=== PATIENT | male | born 1990 | race Caucasian/White ===

== ENCOUNTER → 2020-05-25 14:11 | Outpatient (CLI) | payer BC, SELFPAY ==
[2020-05-25 14:34] LABS: Basophils % 0.4 % (0.1-2.0); Eosinophils # 0.3 K/mm3 (0.0-0.4); Eosinophils % 3.8 % (0.1-12.0); Hematocrit 45.4 % (42.0-52.0); Hemoglobin 15.3 g/dL (14.1-18.0); Lymphocytes # 1.9 K/mm3 (0.7-4.5); Lymphocytes % 25.3 % (10-50); Mean Corpuscular HGB Conc 33.7 g/dL (31.8-35.4); Mean Corpuscular Hemoglobin 29.4 pg (27.0-31.2); Mean Corpuscular Volume 87.3 fl (80-94); Mean Platelet Volume 8.6 fl (7.4-10.4); Monocytes # 0.3 K/mm3 (0.1-1.0); Monocytes % 4.1 % (1.7-9.3); Neutrophils % 66.4 % (37.0-80.0); Platelet Count 195 K/mm3 (142-424); Red Cell Distribution Width 13.5 % (11.5-17.5); White Blood Count 7.6 K/mm3 (4.8-10.8)
[2020-05-25 15:26] LABS: Anion Gap 11.4 mEq/L (5-15); Blood Urea Nitrogen 18 mg/dl (9-20); Calcium 9.7 mg/dl (8.4-10.2); Carbon Dioxide 27 mmol/L (22.0-30.0); Chloride 104 mmol/L (98-107); Estimated Glomerular Filt Rate 100 ml/min (>60); GFR (African American) 122 ML/MIN (>60); Glucose 69 mg/dl (74-100); Potassium 4.4 mmoL/L (3.5-5.1); Sodium 138 mmol/L (136-145)
[2020-05-25 15:40] LABS: Free T4 (Free Thyroxine) 1.08 ng/dl (0.78-2.19)
[2020-05-25 15:54] LABS: Thyroid Stimulating Hormone 1.22 uIU/mL (0.465-4.68)
== END ==
PROVIDERS: Visit Provider Urology
DX: R01.1 Cardiac murmur, unspecified (principal); R06.00 Dyspnea, unspecified; R07.89 Other chest pain; R94.31 Abnormal electrocardiogram [ECG] [EKG]
CPT/HCPCS: 36415; 80048; 84439; 84443; 85025

== ENCOUNTER → 2020-05-27 11:41 | Outpatient (CLI) | payer BC, SELFPAY ==
--- NOTE | 2020-05-27 11:41 | CT_ITS ---
PROCEDURE: CT ANGIO CHEST CLINCIAL INDICATION: dyspnea Soa Worst since Sunday Chest congestion Pt feels like he is unable to get a full breath COMPARISON: No exams were available for comparison TECHNIQUE: IV Contrast: 70ML Isovue 370 Axial images obtained with sagittal and coronal reformats. All CT scans at the facility use one or more dose reduction, viz: automated exposure control, ma/kV adjustment per patient size (including targeted exams where dose is matched to indication, i.e. head), or iterative reconstruction technique. FINDINGS: HEART AND MEDIASTINAL STRUCTURES: There is mild fusiform dilatation of the ascending aorta measuring 4.3 cm AP and 4.1 cm transverse. No evidence of aortic dissection. The aortic arch and descending thoracic aorta are normal in caliber. No evidence of pulmonary embolus. The great vessels have an unremarkable appearance. No mediastinal or hilar mass. There is some heterogeneous soft tissue density in the anterior mediastinum which may be related to residual thymic tissue. LUNGS AND PLEURAL SPACES: Unremarkable. BONY STRUCTURES: No acute bony abnormalities apparent. UPPER ABDOMEN: Unremarkable. ADDITIONAL FINDINGS: Minimal gynecomastia IMPRESSION: Mild fusiform aneurysmal dilatation of the ascending aorta at 4.3 x 4.1 cm. No evidence of dissection or other significant anomaly. No evidence of pulmonary embolus Dictated by: Bret Olivera MD 05/28/2020 11:05 Bert Oilvera MD in [facility] 05/28/2020 11:05
== END ==
PROVIDERS: PCP Emergency Medicine; Visit Provider Urology
DX: R07.89 Other chest pain (principal); R06.00 Dyspnea, unspecified; R01.1 Cardiac murmur, unspecified; R94.31 Abnormal electrocardiogram [ECG] [EKG]; R06.02 Shortness of breath
CPT/HCPCS: 71275; 93306; Q9967

== ENCOUNTER → 2020-06-01 06:37 | Outpatient (CLI) | payer BC, SELFPAY ==
--- NOTE | 2020-06-01 06:37 | CT_ITS ---
PROCEDURE: CT ANGIO CORONARY ARTERY CLINICAL HISTORY: abnormal echo/abnormal chest ct Thoracic aortic aneurysm, chest pain COMPARISON: CT CT ANGIO CHEST from 05/27/2020 TECHNIQUE: Oral Contrast: None IV Contrast: 200 mL Isovue [address] coronary angiogram performed by standard technique. No medication needed for bradycardia. Two runs were performed. FINDINGS: There is mild dilatation of the ascending thoracic aorta as previously mentioned. There appears to be a bicuspid aortic valve. Please correlate with echocardiography. The LAD and the circumflex have separate origins from the left aortic cusp. No significant stenotic lesions are evident of the LAD or circumflex. There is left-sided dominance with the circumflex giving rise to the PDA and posterior lateral branch to the left ventricle. The LAD also supplies the anterior inferior aspect of the inferior wall. The RCA is a small vessel originating from the right coronary cusp with a small acute marginal branch. The PDA arises from the circumflex. No stenotic lesions are evident. No evidence of myocardial bridging. No coronary artery aneurysms. There does appear to be mild cardiomegaly with multi chamber enlargement. Please see echo report for further evaluation of the cardiac chambers. IMPRESSION: 1. No stenotic lesions or malignant courses of the coronary arteries. 2. 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 Suspected bicuspid aortic valve. Please correlate with echocardiography. 4. Small right coronary artery. Inferior wall is supplied by the PDA which arises from the circumflex and the LAD. 5. Fusiform dilatation of the ascending thoracic aorta. The thoracic aorta is incompletely imaged on this exam. Dictated by: Bret Olivera MD 06/02/2020 10:58 Bret Olivera MD in [facility] 06/02/2020 10:58
[2020-06-01 06:54] VITALS: BMI 35.2
== END ==
PROVIDERS: PCP Emergency Medicine; Visit Provider Urology
DX: R06.00 Dyspnea, unspecified (principal); R07.9 Chest pain, unspecified; R07.89 Other chest pain; I71.2 Thoracic aortic aneurysm, without rupture; R01.1 Cardiac murmur, unspecified; R93.1 Abnormal findings on diagnostic imaging of heart and coronary circulation; R93.89 Abnormal findings on diagnostic imaging of other specified body structures; R94.31 Abnormal electrocardiogram [ECG] [EKG]
CPT/HCPCS: 75574; Q9967

== ENCOUNTER → 2020-06-09 15:37 | Outpatient (CLI) | payer BC, SELFPAY ==
[2020-06-09 16:23] LABS: Chloride 103 mmol/L (98-107); Potassium 4.8 mmoL/L (3.5-5.1); Sodium 138 mmol/L (136-145)
[2020-06-09 16:26] LABS: Anion Gap 10.8 mEq/L (5-15); Blood Urea Nitrogen 16 mg/dl (9-20); Carbon Dioxide 29 mmol/L (22.0-30.0); Estimated Glomerular Filt Rate 100 ml/min (>60); GFR (African American) 122 ML/MIN (>60)
[2020-06-09 16:27] LABS: Glucose 90 mg/dl (74-100)
[2020-06-09 16:36] LABS: NT Pro Brain Natriuretic Pep. 42.5 pg/mL (0-125)
== END ==
PROVIDERS: Visit Provider Internal Medicine Cardiovascular Disease
DX: R06.00 Dyspnea, unspecified (principal); R07.89 Other chest pain; R01.1 Cardiac murmur, unspecified; I71.2 Thoracic aortic aneurysm, without rupture; Q23.1 Congenital insufficiency of aortic valve; R94.31 Abnormal electrocardiogram [ECG] [EKG]
CPT/HCPCS: 36415; 80048; 83880

== ENCOUNTER → 2020-06-23 19:09 | Outpatient (CLI) | payer BC, SELFPAY | PROVIDERS: PCP Emergency Medicine; Visit Provider Internal Medicine | DX: R07.89 Other chest pain (principal); R06.00 Dyspnea, unspecified; R94.31 Abnormal electrocardiogram [ECG] [EKG]; R01.1 Cardiac murmur, unspecified; R40.0 Somnolence; G47.30 Sleep apnea, unspecified | CPT/HCPCS: G0399 ==

== ENCOUNTER → 2020-11-11 14:22 | Outpatient (CLI) | payer BC, SELFPAY ==
--- NOTE | 2020-11-11 14:23 | CT_ITS ---
PROCEDURE: CT ANGIO CHEST CLINCIAL INDICATION: r/o thoracic aneurysm COMPARISON: CT CT ANGIO CHEST from 05/27/2020 TECHNIQUE: IV Contrast: 70ML Isovue 370 Axial images obtained with sagittal and coronal reformats. All CT scans at the facility use one or more dose reduction, viz: automated exposure control, ma/kV adjustment per patient size (including targeted exams where dose is matched to indication, i.e. head), or iterative reconstruction technique. FINDINGS: HEART AND MEDIASTINAL STRUCTURES: No mediastinal or hilar mass or adenopathy. There is mild fusiform dilatation of the ascending aorta at 4.3 x 4.2 cm not significantly changed. No evidence of aortic dissection. No evidence of pulmonary embolus.. Possible bicuspid aortic valve. Please correlate with echocardiography. LUNGS AND PLEURAL SPACES: Unremarkable. BONY STRUCTURES: Minimal degenerative changes of the thoracic spine with decrease in the disc spaces and endplate irregularity in the midthoracic spine. UPPER ABDOMEN: Unremarkable. ADDITIONAL FINDINGS: No other significant abnormalities. IMPRESSION: No change in the mild fusiform dilatation of the ascending thoracic aorta at 4.3 x 4.2 cm. No evidence of dissection or other acute anomaly. Dictated by: Bret Olivera MD 11/12/2020 08:09 Bret Olivera MD in [facility] 11/12/2020 08:09
== END ==
PROVIDERS: PCP Emergency Medicine; Visit Provider Family Medicine
DX: R06.00 Dyspnea, unspecified (principal)
CPT/HCPCS: 71275; Q9967

== ENCOUNTER 2020-12-03 19:29 | Emergency (ER) | payer BC, SELFPAY ==
--- NOTE | 2020-12-03 19:24 | ECG_ITS ---
APPROVED REPORT Exam: Resting ECG HR:86 bpm ECG Measurements Heart Rate 86 AXES NV 148 P 70 QRSd 88 QRS 47 QT 366 T 42 QTc 437 Conclusion Normal sinus rhythm Normal ECG Electronically signed by : Issac Kenny MD 12/04/2020 08:56:23
[2020-12-03 19:30] VITALS: BP 167/91; PULSE 92; RESP 16; TEMP 36.6; O2SAT 99; BMI 36.3
[2020-12-03 19:37] VITALS: PULSE 92
--- NOTE | 2020-12-03 19:40 | CT_ITS ---
PROCEDURE INFORMATION: Exam: CTA Chest With Contrast Exam date and time: 12/03/20 07:40 PM Age: 30 years old Clinical indication: Angina pectoris; Patient HX: Known ascending aortic aneurysm measuring 4.[address] scan. PT stated he was having chest pain on the left side going into shoulder, nonsmoker, no SX TECHNIQUE: Imaging protocol: Computed tomographic angiography of the chest with contrast. 3D rendering (Not supervised by radiologist): MIP and/or 3D reconstructed images were created by the technologist. Radiation optimization: All CT scans at this facility use at least one of these dose optimization techniques: automated exposure control; mA and/or kV adjustment per patient size (includes targeted exams where dose is matched to clinical indication); or iterative reconstruction. Contrast material: ISOVUE 370; Contrast volume: 100 ml; Contrast route: INTRAVENOUS (IV); COMPARISON: CT ANGIO CHEST 11/11/20 02:42 PM FINDINGS: Pulmonary arteries: Normal. No pulmonary emboli. Aorta: Unremarkable. No aortic aneurysm. No aortic dissection. Lungs: Unremarkable. No consolidation. No masses. Pleural spaces: Unremarkable. No pneumothorax. No pleural effusion. Heart: Unremarkable. No cardiomegaly. No pericardial effusion. Lymph nodes: Unremarkable. No enlarged lymph nodes. Bones/joints: Unremarkable. No acute fracture. Soft tissues: Unremarkable. IMPRESSION: No acute findings.
--- NOTE | 2020-12-03 19:41 | [facility].EDCP ---
ED Disposition Condition on Discharge: Good - Critical Care Critical Care Time: No <AlexsesarSelwyn - Last Filed: 12/03/20 19:41> <Derrick Sanchez - Last Filed: 12/03/20 20:43> Clinical Impression: Dyspepsia, Nonspecific chest pain Disposition: Home, Self-Care Instructions: DI for Atypical Chest Pain Additional Instructions: see card for follow up Referrals: Jarret De La Rosa MD [Staff Physician] - Attestation: On 12/03/20, the high probability of a clinically significant, sudden or life threatening deterioration of the following system(s) required my full and direct attention, intervention and personal management. The time I documented below is in addition to time spent performing reported procedures but includes the following listed in this critical care notation. Medical Decision Making - Medical Records Medical records reviewed: Yes: I reviewed the patient's medical records. - Myron Inquiry Pt receiving controlled substance: No - ECG Data Tracing #1 I reviewed this ECG and interpreted as documented below: ECG initial impression date: 12/03/20 ECG initial impression time: 19:24 ECG normal with no acute: arrhythmias, ischemia, conduction abnormalities, chamber hypertrophy Normal Sinus Rhythm: Yes - MALGORZATA Score for Non-Stemi Age of Patient: <30 years old Heart Rate: 90-109 bpm Systolic Blood Pressure: 160-199 mmHg Serum Creatinine: <0.40 mg/dl CHF Killip Class: I-No CHF Other Risk Factors: None Non-Stemi Risk Score: 26 Risk Stratification: 1-108 = Low Risk <AlexsesarSelwyn - Last Filed: 12/03/20 19:41> - Lab Data Lab results reviewed: Yes: I reviewed the patient's lab results. Result diagrams: 12/03/20 19:30 12/03/20 19:30 - CT Data CT Scan: Chest Time Received: 20:[address] Reviewed: Yes: I have viewed the radiologist's interpretation Preliminary Findings: Normal/NAD <Derrick Sanchez - Last Filed: 12/03/20 20:43> Vital Signs: 12/03/20 19:30 12/03/20 19:37 Temperature 98 F Temperature Source Oral Pulse Rate 92 H Pulse Rate [Apical] 92 H Respiratory Rate 16 Blood Pressure [Right Arm] 167/91 H Blood Pressure Mean [Right Arm] 116 Blood Pressure Source [Right Arm] Automatic Cuff Blood Pressure Position [Right Arm] Sitting 02 Sat by Pulse Oximetry 99 Oxygen Delivery Method Room Air - Lab Data Lab Results 12/03/20 19:30: WBC 6.2, RBC 4.95, Hgb 14.9, Hct 43.2, MCV 87.4, MCH 30.1, MCHC 34.4, RDW 13.2, Plt Count 200, MPV 9.3, Neut % (Auto) 49.7, Lymph % (Auto) 41.9, [place] % (Auto) 4.7, Eos % (Auto) 2.9, Baso % (Auto) 0.8, Neut # (Auto) 3.1, Lymph # (Auto) 2.6, [place] # (Auto) 0.3, Eos # (Auto) 0.2, Baso # (Auto) 0.1 12/03/20 19:30: Sodium 141, Potassium 4.0, Chloride 106, Carbon Dioxide 26, Anion Gap 13.0, BUN 12, Creatinine 0.70, Estimated Creat Clear 275, Estimated GFR 133, Est GFR ( Amer) 161, Glucose 96, Calcium 9.1, Total Bilirubin 0.4, AST 57, ALT 98 H, Alkaline Phosphatase 75, Troponin I < 0.01, NT-Pro-B Natriuret Pep 34.9, Total Protein 7.5, Albumin 4.3, Globulin 3.2, Albumin/Globulin Ratio 1.3, Lipase 83 Orders (Tests/Meds): ED MEDICATIONS Generic Name Dose Route Start Last Admin Trade Name Freq PRN Reason Stop Dose Admin Sodium Chloride 8 ml 12/03/20 19:40 Sodium Chloride 0.9% 10ml Vial IV 01/02/21 19:39 NEEDED PRN dilute pepcid Discontinued Medications Generic Name Dose Route Start Last Admin Trade Name Freq PRN Reason Stop Dose Admin Famotidine 20 mg 12/03/20 19:40 12/03/20 20:07 Famotidine 20mg/2ml Vial IV 12/03/20 19:41 20 mg ONCE ONE Administration Iopamidol 100 ml 12/03/20 19:58 12/03/20 19:59 Iopamidol-370 (76%);100ml Bottle IV 12/03/20 19:59 100 ml ONCE ONE Administration Sodium Chloride 50 ml 12/03/20 19:58 12/03/20 19:59 0.9 % Sodium Chloride 50 Ml Vial IV 12/03/20 19:59 50 ml ONCE ONE Administration Sodium Chloride 10 ml 12/03/20 19:58 12/03/20 19:59 Sodi
[2020-12-03 20:01] LABS: Basophils # 0.1 K/mm3 (0-0.2); Basophils % 0.8 % (0.1-2.0); Eosinophils # 0.2 K/mm3 (0.0-0.4); Eosinophils % 2.9 % (0.1-12.0); Hematocrit 43.2 % (42.0-52.0); Hemoglobin 14.9 g/dL (14.1-18.0); Lymphocytes # 2.6 K/mm3 (0.7-4.5); Lymphocytes % 41.9 % (10-50); Mean Corpuscular HGB Conc 34.4 g/dL (31.8-35.4); Mean Corpuscular Hemoglobin 30.1 pg (27.0-31.2); Mean Corpuscular Volume 87.4 fl (80-94); Mean Platelet Volume 9.3 fl (7.4-10.4); Monocytes # 0.3 K/mm3 (0.1-1.0); Monocytes % 4.7 % (1.7-9.3); Neutrophils # 3.1 K/mm3 (1.8-7.8); Neutrophils % 49.7 % (37.0-80.0); Platelet Count 200 K/mm3 (142-424); Red Blood Count 4.95 M/mm3 (4.60-6.20); Red Cell Distribution Width 13.2 % (11.5-17.5); White Blood Count 6.2 K/mm3 (4.8-10.8)
[2020-12-03 20:03] LABS: Chloride 106 mmol/L (98-107); Sodium 141 mmol/L (136-145)
[2020-12-03 20:05] LABS: Alanine Aminotransferase 98 U/L (12-78); Alkaline Phosphatase 75 U/L (38-126); Aspartate Amino Transferase 57 U/L (17-59); Bilirubin,Total 0.4 mg/dl (0.2-1.3); Blood Urea Nitrogen 12 mg/dl (9-20); Creatinine Clearance Estimated 275 mL/min (50-200); Estimated Glomerular Filt Rate 133 ml/min (>60); GFR (African American) 161 ML/MIN (>60)
[2020-12-03 20:06] LABS: Albumin Level 4.3 g/dl (3.5-5.0); Albumin/Globulin Ratio 1.3 (1.1-1.8); Calcium 9.1 mg/dl (8.4-10.2); Carbon Dioxide 26 mmol/L (22.0-30.0); Globulin 3.2 g/dL (1.3-3.2); Glucose 96 mg/dl (74-100); Lipase 83 U/L (23-300); Total Protein,Serum 7.5 g/dl (6.3-8.2)
[2020-12-03 20:15] LABS: NT Pro Brain Natriuretic Pep. 34.9 pg/mL (0-125)
[2020-12-03 20:19] LABS: Troponin I < 0.01 ng/ml (0.00-0.034)
[2020-12-03 20:48] VITALS: BP 135/75; PULSE 87; RESP 16; TEMP 36.7; O2SAT 98
== END 2020-12-03 20:48 | disposition home or self-care (01) ==
PROVIDERS: Emergency Provider Emergency Medicine; PCP Emergency Medicine
DX: R07.89 Other chest pain (principal); K21.9 Gastro-esophageal reflux disease without esophagitis; R01.1 Cardiac murmur, unspecified
CPT/HCPCS: 71275; 80053; 83690; 83880; 84484; 85025; 93005; 96374; 99283; Q9967

== ENCOUNTER 2024-10-14 14:56 | Outpatient (CLI) | payer BC, SELFPAY ==
--- OUTSIDE RECORDS SUMMARY | 2024-10-14 14:59 | XMS_ITS | Clinical Summary ---
Author Organization [facility] Address [address] [place] [id number] Phone [email or web address] Care Team Providers Care Product Development Manager Name Role Phone Unavailable Primary Care Provider Unavailabl e Allergies Active Allergy Reactions Criticality Noted Date Comments Benzoyl Peroxide 11/30/2020 Medications pantoprazole (PROTONIX) 40 MG EC tablet Take 40 mg by mouth 1 (one) time each day. 11/02/2020 Active losartan (COZAAR) 50 MG tablet Take 50 mg by mouth 1 (one) time each day. 10/27/2020 Active Active Problems No known active problems Social History Tobacco Use Types Packs/Day Years Used Date Smoking Tobacco: Never Smokeless Tobacco: Current Snuff Intimate Partner Violence Answer Date R ecorded Insults You Not on file 06/05/2020 Threatens You Not on file 06/05/2020 Screams at You Not on file 06/05/2020 Physically Hurt Not on file 06/05/2020 Intimate Partner Violence Score Not on file 06/05/2020 Depression Answer Date Recorded PHQ Total Score 0 12/09/2022 Stress Answer Date Recorded Stress in your Life Not on file 12/26/2023 Dealing with Stress 3 12/26/2023 Sex and Gender Information Value Date Recorded Sex Assigned at Not on file 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 Gender Identity Not on file Sexual Orientation Not on file Last Filed Vital Signs Vital Sign Reading Time Taken Comments Blood Pressure 132/76 05/30/2023 10:21 PM EDT Pulse 90 05/30/2023 10:21 PM EDT Temperature 36.7 C (98 F) 05/30/2023 10:21 PM EDT Respiratory Rate 16 05/30/2023 10:21 PM EDT Oxygen Saturation 98% 05/30/2023 10:21 PM EDT Inhaled Oxygen Concentration - - Weight 134 kg (295 lb) 05/30/2023 10:21 PM EDT Height 185.4 cm (6' 1 ) 05/30/2023 10:21 PM EDT Body Mass Index 38.92 05/30/2023 10:21 PM EDT Plan of Treatment Health Maintenance Due Date Last Done Comments Dental Cleaning/Exam 1991 HIV Screening 1991 Hepatitis C Screening 1991 HPV Immunization (1 - Male 3-dose series) 06/18/2006 Annual Preventive Exam 06/18/2009 Hep B Infection Screening - Triple Screen 06/18/2009 Covid-19 Immunization ( season) 2023 Influenza Immunization (#1) 2024 Tetanus Diphtheria and Pertussis Immunization (6 - Td or Tdap) 12/09/2032 12/09/2022, 02/11/1996, 12/29/1993, Additional history exists HIB Immunization Completed 02/11/1996, 11/1993, 04/28/1992, Additional history exists Polio Immunization Completed 02/11/1996, 1 02/28/1993, 04/28/1992, Additional history exists Hepatitis B Immunization Completed 005, 05/12/2003, 08/27/2002 Hepatitis A Immunization Aged Out No longer eligible based on patient's age to complete this topic Pneumococcal: Ped (0 to 5 Yrs) and At-Risk Member (6 to 64 Yrs) Aged Out No longer eligible based on patient's age to complete this topic Varicella Immunization Aged Out No lo nger eligible based on patient's age to complete this topic Insurance OPT OUT NO COPAY NB
--- OUTSIDE RECORDS SUMMARY | 2024-10-14 14:59 | XMS_ITS | Clinical Summary ---
Author Organization [facility] Address [address] [place] [address] Care Team Providers Care Central Office Trouble Shooter Name Role Phone Derrick Sanchez MD Primary Care Provider + [phone] Allergies Active Allergy Reactions Criticality Noted Date Comments Benzoyl Peroxide Unknown - Patient st ates they do not know rxn details Low 11/30/2020 Medications No known medications Active Problems Problem Noted Date Diagnosed Date Finger pain, left 01/24/2023 Immunizations Immunization Administration Dates Next Due Tdap 12/09/2022 Social History Tobacco Use Types Packs/Day Years Used Date Smoking Tobacco: Never Smokeless Tobacco: Former Tobacco Cessation:Counseling Given: Not Answered Sex and Gender Information Value Date Recorded Sex Assigned at Not on file Legal Sex Male 8:00 PM EDT Gender Identity Not on file Sexual Orientation Not on file Last Filed Vital Signs Vital Sign Reading Time Taken Comments Blood Pressure 108/71 01/24/2023 3:37 PM EST Pulse 93 01/24/2023 3:37 PM EST Temperature 36.7 C (98 F) 12/13/2022 9:14 AM EDT Respiratory Rate 20 12/09/2022 7:58 AM EDT Oxygen Saturation 94% 01/24/2023 3:37 PM EST Inhaled Oxygen Concentration - - Weight 134 kg (295 lb) 01/24/2023 3:37 PM EST Height 185.4 cm (6' 1 ) 01/24/2023 3:37 PM EST Body Mass Index 38.92 01/24/2023 3:37 PM EST Plan of Treatment Health Maintenance Due Date Last Done Comments [facility]-Depression Screening 1991 [facility]-HIV Screening 1991 [facility]-Hepatitis C Screening 1991 [facility]-/Child/Adol SDOH Screenings 1991 [facility]-Varicella Vaccines (1 of 2 - 13+ 2-dose series) 06/18/2004 [facility]- SDOH Screenings 06/18/2009 [facility]-Adult SDOH Screenings 06/18/2009 HPV Vaccines (1 - 3-dose SCDM series) 06/18/2018 [id number] Vaccine (1 - 2023- season) 2023 [facility]-Influenza Vaccine (#1) 2024 [facility]-DTaP,Tdap,and Td Vaccines (6 - Td or Tdap) 12/09/2032 12/09/2022, 02/08/2002, 02/11/1996, Additional history exists [facility]-Zoster Vaccines (1 of 2) 06/18/2041 [facility]-HIB Vaccines Completed 02/11/1996, 11/1993, 04/28/1992, Additional history exists [facility]-IPV Vaccines Completed 02/11/1996, 11/1993, 04/28/1992, Additional history exists [facility]-Hepatitis B Vaccines Completed 005, 05/12/2003, 08/27/2002 [facility]-Obesity Intervention Completed 023, 01/24/2023, 01/03/2023, Additional history exists [facility]-Hepatitis A Vaccines Aged Out No longer eligible based on patient's age to complete this topic [facility]-Pneumococcal Vaccine: Pediatrics (0 to 5 Years) and At-Risk Patients (6 to 49 Years) Aged Out No longer eligible based on patient's age to complete this topic [facility]-Rotavirus Vaccines Aged Out No lo nger eligible based on patient's age to complete this topic Insurance [facility] Care Teams Central Office Trouble Shooter Relationship Specialty Start Date End Date Derrick Sanchez MD [address] [place] [address] [place] [address] PCP - General 07/02/20
[2024-10-14 15:24] LABS: Hematocrit 42.8 % (42.0-52.0); Hemoglobin 14.8 g/dL (14.1-18.0); Immature Granulocytes % 0.3 %; Mean Corpuscular HGB Conc 34.6 g/dL (31.8-35.4); Mean Corpuscular Hemoglobin 30.0 pg (27.0-31.2); Mean Corpuscular Volume 86.6 fl (80-94); Nucleated Red Blood Cells % 0 %; Platelet Count 220 K/mm3 (142-424); Red Blood Count 4.94 M/mm3 (4.60-6.20); Red Cell Distribution Width-SD 38.5 fL; White Blood Count 7.6 K/mm3 (4.8-10.8)
[2024-10-14 16:05] LABS: Albumin Level 4.5 g/dl (3.5-5.0); Chloride 107 mmol/L (98-107); Sodium 138 mmol/L (136-145)
[2024-10-14 16:06] LABS: Potassium 4.2 mmoL/L (3.5-5.1)
[2024-10-14 16:08] LABS: Alanine Aminotransferase 151 U/L (12-78); Anion Gap 10.2 mEq/L (5-15); Aspartate Amino Transferase 59 U/L (17-59); Bilirubin,Unconjugated 0.3 mg/dL (0.0-1.1); Blood Urea Nitrogen 25 mg/dl (9-20); Carbon Dioxide 25 mmol/L (22.0-30.0); Cholesterol 187 mg/dl (140-200); Creatinine,Serum 0.90 mg/dl (0.66-1.25); Estimated Glomerular Filt Rate 97 ml/min (>60); GFR (African American) 118 ML/MIN (>60); Total Protein,Serum 7.0 g/dl (6.3-8.2); Triglycerides 120 mg/dl (30-150)
[2024-10-14 16:09] LABS: Alkaline Phosphatase 78 U/L (38-126); Bilirubin,Direct 0.1 mg/dl (0.0-0.4); Bilirubin,Indirect 0.3 mg/dL (0.0-0.9); Bilirubin,Total 0.4 mg/dl (0.2-1.3); Calcium 9.6 mg/dl (8.4-10.2); Glucose 88 mg/dl (74-100); HDL Cholesterol 41 mg/dl (40-60); Magnesium 2.0 mg/dl (1.6-2.3)
[2024-10-14 16:34] LABS: Free T4 (Free Thyroxine) 1.20 ng/dl (0.78-2.19)
[2024-10-14 16:39] LABS: Thyroid Stimulating Hormone 1.23 uIU/mL (0.465-4.68)
== END 2024-10-14 23:59 | disposition home or self-care (01) ==
LOC: LAB 14:57
PROVIDERS: Visit Provider Physician Assistant
DX: I71.21 Aneurysm of the ascending aorta, without rupture (principal); Q23.81 Bicuspid aortic valve; K21.9 Gastro-esophageal reflux disease without esophagitis; R01.1 Cardiac murmur, unspecified
CPT/HCPCS: 36415; 80048; 80061; 80076; 83735; 84439; 84443; 85025

== ENCOUNTER 2024-10-27 07:42 | Outpatient (CLI) | payer BC, SELFPAY ==
--- OUTSIDE RECORDS SUMMARY | 2024-10-27 07:45 | XMS_ITS | Clinical Summary ---
Author Organization [facility] Address [address] [place] [address] Care Team Providers Care Pharmacy Order Entry Technician Name Role Phone Derrick Sanchez MD Primary Care Provider + [phone] Allergies Active Allergy Reactions Criticality Noted Date [...] [facility]-HIV Screening 1991 [facility]-Hepatitis C Screening 1991 [facility]-Infant/Child/Adol SDOH Screenings 1991 [facility]-Varicella Vaccines (1 of 2 - 13+ 2-dose series) 06/18/2004 [facility]- SDOH Screenings 06/18/2009 [facility]-Adult SDOH Screenings 06/18/2009 HPV Vaccines (1 - 3-dose SCDM series) 06/18/2018 [id number] Vaccine (1 - 2023- season) 2023 [facility]-Influenza [...] age to complete this topic Insurance [facility] Care Teams Pharmacy Order Entry Technician Relationship Specialty Start Date End Date Derrick Sanchez MD [address] [place] [address] [place] [address] PCP - General 07/02/20
--- NOTE | 2024-10-27 08:00 | CA_ITS ---
APPROVED REPORT EXAM: Comprehensive 2D, Doppler, and color-flow Echocardiogram Tobacco Sieve Operator: Theresa Gandhi CRT Ht: 6 ft 1 in Wt: 325lbs BSA: 2.64 BP: 134/53 mmHg Indications: Murmur, BAV 2D Dimensions LA Volume 45.20 mL LA Volume Index 17.06 mL/m2 (M/F) 16-34 M-Mode Dimensions RVDd 2.74 cm (0.9-2.6) LA Diam 3.64 cm (1.9-4.0) LVDd 5.31 cm (3.5-5.7) LVDs 3.38 cm (3.5-5.7) IVSd 1.37 cm (0.6-1.1) PWd 1.23 cm (0.6-1.1) EF (Teich) 65.60% FS 36.30% EDV (Teich) 135.90 mL ESV (Teich) 46.80 mL LV Diastology E Decel Time 143 (160-240 msec) E/A Ratio 1.8 MED A' 5.00 cm/s LAT A' 7.20 cm/s Aortic Valve AN Index 0.78 cm2/m2 AoV Peak Steve. 243.0 (50-130 cm/s) AI PHT 635.00 ms AO Peak GR. 23.70 mmHg AO Mean GR. 13.50 (<5 mmHg) AO VTI 46.4 (18-25 cm) AN (VTI) 2.12 (2.5-4.5 cm2) Mitral Valve MV E Max Steve. 97.0 (40-130 cm/s) MV A Velocity 54.0 (40-130 cm/s) E/A Ratio 1.78 MV PHT 42.0 ms Pulmonary Valve PV Peak Velocity 169.0 (50-150 cm/s) Tricuspid Valve TR P. Velocity 276.00 cm/s RAP Estimate 10.00 mmHg RVSP 40.50 mmHg Left Ventricle The left ventricle is normal size. Left ventricular systolic function is normal. The left ventricular ejection fraction is within the normal range. There is normal left ventricular wall thickness. There is normal LV segmental wall motion. The left ventricular diastolic function is normal. LVEF is 55% Right Ventricle The right ventricle is normal size. The right ventricular systolic function is normal. Atria The left atrium size is normal. The right atrium size is normal. There is no color Doppler evidence of interatrial shunt. Aortic Valve The aortic valve is likely bicuspid, with fusion of the right and non-coronary cusps. There is no hemodynamically significant aortic valvular stenosis. Mild to moderate aortic regurgitation is present. Mitral Valve The mitral valve is normal in structure. No evidence of mitral valve stenosis. Trace mitral regurgitation is present. Tricuspid Valve The tricuspid valve leaflets are thin and pliable. Mild tricuspid regurgitation. RVSP is 20-25 mmHg. Pulmonic Valve The pulmonary valve is grossly normal in structure. Trace pulmonic valve regurgitation is present. Great Vessels The aortic root is normal in size. The ascending aorta is mildly dilated, measuring 3.8 cm in diameter. IVC is normal in size and collapses >50% with inspiration. Pericardium There is no pericardial effusion. Other Information Study Quality: Fair Conclusion Normal biventricular systolic function. Bicuspid aortic valve with fusion of the right and non-coronary cusps. Mild to moderate AI. No hemodynamically significant . The ascending aorta is mildly dilated, measuring 3.8 cm in diameter. Electronically signed by : Madhuri Andrews MD 10/27/2024 21:03:40
--- NOTE | 2024-10-27 08:45 | CT_ITS ---
FINAL REPORT TECHNIQUE: Axial imaging of the chest is obtained after the administration of contrast. 3-D MIP reformatted images were also obtained and reviewed per PE protocol. This study was performed with techniques to keep radiation doses as low as reasonably achievable (ALARA). Individualized dose reduction techniques using automated exposure control or adjustment of mA and/or kV according to the patient's size were employed. CLINICAL HISTORY: AAA COMPARISON: 12/03/2020 FINDINGS: The pulmonary arteries are well filled. There is no evidence of pulmonary embolus. There is no aortic dissection. There is enlargement of the ascending aorta, measuring 45 mm in diameter, unchanged since the prior CTA of 2020. Heart size is normal. There is no mediastinal, hilar, or axillary lymphadenopathy. The lungs are clear. There is no pleural or pericardial effusion. Limited evaluation of the upper abdomen is without acute abnormality. No acute osseous abnormality. IMPRESSION: No evidence of pulmonary embolism or aortic dissection. There is enlargement of the ascending aorta, measuring 45 mm in diameter, unchanged since the prior CTA of 2020, consistent with an ascending thoracic aortic aneurysm. Reviewed, Interpreted and Dictated by Anna Ham MD Transcribed by Sheela Black Authenticated and [facility]
[2024-10-27] MEDS: SODIUM CHLORIDE 0.9% 10ML SYR (RAD ONLY) 10 ML IV (08:52)
[2024-10-27] MEDS: 0.9 % SODIUM CHLORIDE 50 ML VIAL IV (08:52)
[2024-10-27] MEDS: IOPAMIDOL-370 (76%);100ML BOTTLE 100 ML IV (08:53)
== END 2024-10-27 23:59 | disposition home or self-care (01) ==
LOC: RT 07:43
PROVIDERS: Visit Provider Physician Assistant
DX: I35.2 Nonrheumatic aortic (valve) stenosis with insufficiency (principal); I71.21 Aneurysm of the ascending aorta, without rupture; Q23.81 Bicuspid aortic valve; K21.9 Gastro-esophageal reflux disease without esophagitis
CPT/HCPCS: 71275; 93306; Q9967